=== PATIENT | female | born 1945 | race Two or more races ===

== ENCOUNTER 2024-09-20 21:22 | Emergency (ER) | payer OTHER ==
[~2024-09-20] VITALS: Ht 162.6 cm; Wt 56.2 kg
[2024-09-20] MEDS ORDERED: ESTAZOLAM1 MG PO (21:47)
[2024-09-20 23:21] LABS: INR 1.07; PARTIAL THROMBOPLASTIN TIME 27.8 SECONDS (22.0-34.0); PROTHROMBIN TIME 11.6 SECONDS (9.0-11.5)
[2024-09-20 23:41] LABS: ALBUMIN 3.6 gm/dL (3.4-5.0); BILIRUBIN TOTAL 0.49 mg/dL (0.3-1.2); CALCIUM 8.8 mg/dL (8.5-10.1); CREATININE SERUM 0.72 mg/dL (0.55-1.02); GFR 78.14; POTASSIUM 3.55 mEq/L (3.5-5.1); TOTAL PROTEIN 7.6 gm/dL (6.4-8.2)
[2024-09-20 23:57] LABS: HEMATOCRIT 36.9 % (36.0-45.00); HEMOGLOBIN 12.5 g/dL (12.0-15.00); MEAN CELL VOLUME 93.2 fL (80.00-100.00); MEAN CORPUSCULAR HEMOGLOBIN 31.5 pg (27.00-32.0); MEAN CORPUSCULAR HGB CONC 33.8 g/dl (32.0-36.0); PLATELET COUNT 144 K/uL (150-450); RED BLOOD COUNT 3.96 M/uL (4.00-6.00); RED CELL DISTRIBUTION WIDTH 13.7 % (11.5-14.5)
[2024-09-21] MEDS ORDERED: MELOXICAM15 MG PO (04:02)
[2024-09-21] MEDS ORDERED: CEPHALEXIN500 MG PO (04:02)
== END 2024-09-21 04:07 ==
LOC: ER 21:25
DX: S00.83XA Contusion of other part of head, initial encounter (principal); W19.XXXA Unspecified fall, initial encounter; Y93.89 Activity, other specified; Y92.488 Other paved roadways as the place of occurrence of the external cause; Y99.8 Other external cause status